=== PATIENT | female | born 2000 ===

== ENCOUNTER 2021-11-01 05:06 | Emergency (ER) | payer SELFPAY ==
[2021-11-01 05:17] VITALS: BP 142/54; PULSE 150; RESP 18; TEMP 36.6; O2SAT 99
--- NOTE | 2021-11-01 05:38 | ECG_ITS ---
Measurements Intervals [place] Rate: 138 P: 69 GA: 146 QRS: 47 QRSD: 77 T: 45 QT: 330 QTc: 500 Interpretive Statements SINUS TACHYCARDIA INCOMPLETE RIGHT BUNDLE BRANCH BLOCK BORDERLINE T WAVE ABNORMALITY- ANT/INF LEADS ABNORMAL ECG Electronically Signed On 11-01-2021 6:29:18 [place] [facility] by Leonard Mitchell D.O.
--- NOTE | 2021-11-01 07:23 | PC.NURSE ---
PT. called twice for repeat vitals. no answer.
== END 2021-11-01 07:23 | disposition left against medical advice (07) ==
LOC: ANHED 07:37
PROVIDERS: Emergency Provider Emergency Medicine
DX: R11.2 Nausea with vomiting, unspecified (principal)
CPT/HCPCS: 93005; 99199